=== PATIENT | male | born 1985 | race Caucasian/White ===

== ENCOUNTER 2018-07-14 16:20 | Emergency (ER) | payer SELFPAY ==
[~2018-07-14] VITALS: Ht 180.3 cm; Wt 97.5 kg
[2018-07-14 16:58] LABS: BASO % 0.2 % (0.0-1.0); EOS % 0.2 % (1.0-4.0); HEMATOCRIT 45.3 % (42.0-52.0); HEMOGLOBIN 15.6 g/dl (14.0-18.0); LYMPH # 1.1 10*3/uL (1.3-4.4); LYMPH % 6.6 % (27.0-41.0); MEAN CORPUSCULAR HGB 31.3 pg (27.0-31.0); MEAN CORPUSCULAR HGB CONC 34.4 g/dl (33.0-37.0); MEAN PLATELET VOLUME 11.5 fl (9.6-12.3); MONO # 0.7 10*3/uL (0.1-1.0); MONO % 3.9 % (3.0-9.0); NEUT # 15.3 10*3/uL (2.3-7.9); NEUT % 88.6 % (47.0-73.0); PLATELET COUNT AUTOMATED 233 10*3/uL (130-400); RED BLOOD COUNT 4.98 10*6/uL (4.50-5.90); RED CELL DISTRI WIDTH 13.2 % (0-14.5); WHITE BLOOD COUNT 17.2 10*3/uL (4.8-10.8)
[2018-07-14 17:17] LABS: URIC ACID 10.6 mg/dL (3.5-7.2)
[2018-07-14] MEDS ORDERED: INDOMETHACIN50 MG PO (19:12)
== END 2018-07-14 19:25 | disposition home or self-care (01) ==
LOC: ED 16:20
PROVIDERS: Physician Assistant
DX: M25.462 Effusion, left knee (principal); E79.0 Hyperuricemia without signs of inflammatory arthritis and tophaceous disease; R11.0 Nausea

== ENCOUNTER 2024-10-22 17:09 | Emergency (ER) | payer SELFPAY ==
[~2024-10-22] VITALS: Ht 180.3 cm; Wt 95.3 kg
[~2024-10-22 17:09] MED LIST: INDOMETHACIN50 MG PO
[2024-10-22] MEDS ORDERED: PREDNISONE50 MG PO (17:24)
== END 2024-10-22 17:45 | disposition home or self-care (01) ==
LOC: ED 17:09
DX: M10.9 Gout, unspecified (principal)

== ENCOUNTER 2024-12-09 03:39 | Emergency (ER) | payer SELFPAY ==
[~2024-12-09] VITALS: Ht 180.3 cm; Wt 95.3 kg
[~2024-12-09 03:39] MED LIST changes: +PREDNISONE50 MG PO
[2024-12-09] MEDS ORDERED: predniSONE 20 MG TAB PO ONE (04:00)
[2024-12-09] MEDS ORDERED: PREDNISONE20 M1 PO (04:09)
== END 2024-12-09 04:34 | disposition home or self-care (01) ==
LOC: ED 03:39
DX: M10.061 Idiopathic gout, right knee (principal)